=== PATIENT | male | born 1950 | race Caucasian/White ===

== ENCOUNTER 2016-07-06 13:46 | Emergency (ER) | payer OTHER ==
[~2016-07-06] VITALS: Ht 175.3 cm; Wt 100.3 kg
[~2016-07-06 13:46] MED LIST: ASPIRIN325 MG PO; CINNAMON500 MG PO; COQ1050 MG PO; CRESTOR40 MG PO; DAILY MULTIVIT1 EAC6 PO; FLOMAX0.4 MG PO; GARCINIA CAMBO1 EACH PO; LISINOPRIL10 MG PO; METOPROLOL TAR100 MG PO; MOTRIN800 MG PO; OMEGA 3 500 SO1 EACH PO; PROTONIX40 MG PO; RED YEAST RICE600 MG PO; ROSUVASTATIN CA40 MG PO; TOPROL XL50 MG PO; TRAMADOL HCL50 MG PO; TRICOR145 MG PO; TUMERSAID TABL1 EACH PO; ZETIA10 MG PO
[2016-07-06 18:35] LABS: MCH 29.8 PG (29.0-34.0); MCV 93.1 FL (86-99); MEAN PLAT.VOLUME 8.1 uM^3 (9.0-12.4); PLATELET COUNT 244 K/uL (156-360); RBC DIS.WIDTH-CV 17.7 % (11.8-14.6); RBC DIS.WIDTH-SD 55.9 % (39-53); RED BLOOD COUNT 3.76 M/uL (4.00-5.50)
[2016-07-06 18:44] LABS: CHLORIDE 108 mEq/L (99-109); POTASSIUM 4.1 mEq/L (3.7-5.4); SODIUM 141 mEq/L (136-147)
[2016-07-06 18:46] LABS: GLUCOSE 85 mg/dL (70-99); WHITE BLOOD COUNT 8.4 K/uL (4.1-10.2)
[2016-07-06 18:48] LABS: ANION GAP 9 MEQ/L (2-14)
[2016-07-06 18:50] LABS: GFR ESTIMATE (CALCULATED) > 59 mL/min/
[2016-07-06 18:51] LABS: UREA NITROGEN (BUN) 13 mg/dL (9-23)
[2016-07-06 19:16] LABS: BASOPHIL COUNT 0.1 K/uL (0-0.1); EOSINOPHIL (%) 0.1 % (0-5); HEMATOLOGY COMMENT 1 REV; IMMATURE GRANULOCYTE (%) 4.6 % (0.0-0.7); IMMATURE GRANULOCYTE COUNT 3.8 K/uL; LYMPHOCYTE COUNT 2.2 K/uL (1.0-2.8); MONOCYTE (%) 10.1 % (3-12); MONOCYTE COUNT 0.8 K/uL (0-0.8); NEUTROPHIL (%) 57.7 % (45-76); NEUTROPHIL COUNT 4.8 K/uL (1.8-6.4); PLAT.SUFFICIENCY ADEQUATE; USER ID BW1
[2016-07-06] MEDS ORDERED: CLINDAMYCIN HC300 MG PO (19:35)
[2016-07-06] MEDS ORDERED: TERBINAFINE HC250 MG PO (19:35)
[2016-07-06 19:47] VITALS: BP 138/78
== END 2016-07-06 20:23 | disposition home or self-care (01) ==
LOC: EME 13:46
PROVIDERS: Emergency Medicine
DX: B35.1 Tinea unguium (principal); C61 Malignant neoplasm of prostate; Z79.899 Other long term (current) drug therapy; E78.5 Hyperlipidemia, unspecified; I10 Essential (primary) hypertension; Z98.61 Coronary angioplasty status; Z79.82 Long term (current) use of aspirin
CPT/HCPCS: 80048; 85025; 99281; 99284

== ENCOUNTER 2016-08-07 13:34 | Emergency (ER) | payer OTHER ==
[~2016-08-07] VITALS: Ht 175.3 cm; Wt 98.3 kg
[~2016-08-07 13:34] MED LIST changes: +CLINDAMYCIN HC300 MG PO; +TERBINAFINE HC250 MG PO
[2016-08-07] MEDS ORDERED: BENADRYL25 MG PO (14:33)
[2016-08-07] MEDS ORDERED: FLEXERIL10 MG PO (14:33)
[2016-08-07 14:49] VITALS: BP 123/79
== END 2016-08-07 14:50 | disposition home or self-care (01) ==
LOC: EME 13:34
DX: M62.838 Other muscle spasm (principal); L98.9 Disorder of the skin and subcutaneous tissue, unspecified; T36.7X5A Adverse effect of antifungal antibiotics, systemically used, initial encounter; T36.8X5A Adverse effect of other systemic antibiotics, initial encounter; C61 Malignant neoplasm of prostate; I10 Essential (primary) hypertension; I25.2 Old myocardial infarction; Z98.61 Coronary angioplasty status; Z79.82 Long term (current) use of aspirin
CPT/HCPCS: 99281; 99284

== ENCOUNTER 2017-04-18 20:28 | Emergency (ER) | payer OTHER ==
[~2017-04-18] VITALS: Ht 175.3 cm; Wt 97.0 kg
[~2017-04-18 20:28] MED LIST changes: +BENADRYL25 MG PO; +FLEXERIL10 MG PO
[2017-04-18 21:10] LABS: HEMATOCRIT 39.9 % (38.0-50.0); MCHC 32.8 G/DL (30.0-36.0); MCV 91.3 FL (86-99); MEAN PLAT.VOLUME 8.9 uM^3 (9.0-12.4); PLATELET COUNT 234 K/uL (156-360); RBC DIS.WIDTH-CV 13.3 % (11.8-14.6); RBC DIS.WIDTH-SD 45.4 % (39-53); RED BLOOD COUNT 4.37 M/uL (4.00-5.50); WHITE BLOOD COUNT 8.2 K/uL (4.1-10.2)
[2017-04-18 21:20] LABS: CHLORIDE 107 mEq/L (99-109); POTASSIUM 4.4 mEq/L (3.7-5.4); SODIUM 140 mEq/L (136-147)
[2017-04-18 21:23] LABS: GLUCOSE 146 mg/dL (70-99)
[2017-04-18 21:24] LABS: ANION GAP 9 MEQ/L (2-14)
[2017-04-18 21:25] LABS: TOTAL BILIRUBIN 0.3 mg/dL (0.0-1.0)
[2017-04-18 21:26] LABS: ALKALINE PHOSPHATASE 46 IU/L (3-129); GFR ESTIMATE (CALCULATED) > 59 mL/min/
[2017-04-18 21:27] LABS: UREA NITROGEN (BUN) 17 mg/dL (9-23)
[2017-04-18 21:30] LABS: LIPASE 63 U/L (1.0-51.0)
[2017-04-18 21:32] LABS: TROP-I INTERPRETATION NEGATIVE; TROPONIN-I < 0.01 ng/mL (0.0-0.30)
[2017-04-19 00:21] VITALS: BP 118/72
== END 2017-04-19 00:22 | disposition home or self-care (01) ==
LOC: EME → EDBD 20:28 → EME 20:28
PROVIDERS: Emergency Medicine
DX: K80.70 Calculus of gallbladder and bile duct without cholecystitis without obstruction (principal); I10 Essential (primary) hypertension; E78.5 Hyperlipidemia, unspecified; I25.2 Old myocardial infarction; Z95.5 Presence of coronary angioplasty implant and graft
CPT/HCPCS: 71020; 76705; 80048; 80053; 83690; 84484; 85027; 93005; 99281; 99285

== ENCOUNTER 2017-07-25 19:01 | Emergency (ER) | payer OTHER ==
[~2017-07-25] VITALS: Ht 175.3 cm; Wt 97.5 kg
[~2017-07-25 19:01] MED LIST changes: +XTANDI40 MG PO
[2017-07-25 19:52] LABS: HEMATOCRIT 36.4 % (38.0-50.0); MCH 29.6 PG (29.0-34.0); MCV 89.7 FL (86-99); PLATELET COUNT 260 K/uL (156-360); RBC DIS.WIDTH-CV 13.5 % (11.8-14.6); RED BLOOD COUNT 4.06 M/uL (4.00-5.50); WHITE BLOOD COUNT 5.9 K/uL (4.1-10.2)
[2017-07-25 20:07] LABS: ALBUMIN 3.7 g/dL (3.2-4.8); CHLORIDE 109 mEq/L (99-109); POTASSIUM 4.2 mEq/L (3.7-5.4); SODIUM 140 mEq/L (136-147)
[2017-07-25 20:10] LABS: GLUCOSE 106 mg/dL (70-99)
[2017-07-25 20:12] LABS: TOTAL BILIRUBIN 0.4 mg/dL (0.0-1.0)
[2017-07-25 20:13] LABS: ALKALINE PHOSPHATASE 59 IU/L (3-129); GFR ESTIMATE (CALCULATED) > 59 mL/min/ (58.99-99999)
[2017-07-25 20:14] LABS: UREA NITROGEN (BUN) 12 mg/dL (9-23)
[2017-07-25 20:15] LABS: AST (GOT) 19 IU/L (2-34)
[2017-07-25 20:16] LABS: ALT (GPT) 13 IU/L (3-49)
[2017-07-25 20:17] LABS: LIPASE 49 U/L (1.0-51.0)
[2017-07-25 20:29] LABS: APPEARANCE CLEAR ((CLEAR)); BILIRUBIN NEGATIVE; BLOOD NEGATIVE; COLOR YELLOW ((YELLOW)); GLUCOSE (STRIP) NEGATIVE; KETONES NEGATIVE; LEUKOCYTES NEGATIVE; NITRITE NEGATIVE; PROTEIN (STRIP) NEGATIVE; SPECIFIC GRAVITY 1.015 (1.000-1.030); UCUL ADDED? NO; UROBILINOGEN 0.2 MG/DL (0.2-1.0)
[2017-07-25] MEDS ORDERED: NORCO 5/3251 TABLET PO (21:59)
[2017-07-25 22:45] VITALS: BP 130/67
== END 2017-07-25 22:47 | disposition home or self-care (01) ==
LOC: EME 19:01
PROVIDERS: Family Medicine
DX: R10.9 Unspecified abdominal pain (principal); C61 Malignant neoplasm of prostate; Z79.899 Other long term (current) drug therapy; I10 Essential (primary) hypertension; E78.5 Hyperlipidemia, unspecified; I25.2 Old myocardial infarction; Z95.5 Presence of coronary angioplasty implant and graft; Z87.442 Personal history of urinary calculi; Z79.82 Long term (current) use of aspirin
CPT/HCPCS: 74177; 80053; 81003; 83690; 85027; 99281; 99284; J7030

== ENCOUNTER 2017-10-06 17:32 | Inpatient (IN) | payer OTHER ==
[~2017-10-06] VITALS: Ht 175.3 cm; Wt 86.7 kg
[~2017-10-06 17:32] MED LIST changes: +MORPHINE SULFAT10 M3 PO; +NORCO 5/3251 TABLET PO
[2017-10-06] MEDS ORDERED: LOPRESSOR25 MG PO (19:33)
[2017-10-06] MEDS ORDERED: COMPAZINE10 MG PO (19:35)
[2017-10-06] MEDS ORDERED: TYLENOL EXTRA500 MG PO (19:36)
[2017-10-06] MEDS ORDERED: BRILINTA90 MG PO (19:36)
[2017-10-06] MEDS ORDERED: MS CONTIN,ORAMO30 MG PO (19:37)
[2017-10-06 20:29] VITALS: BP 115/77
[2017-10-06 20:40] VITALS: BP 115/71
[2017-10-06 20:59] LABS: IRON 22 MCG/DL (35-150); TRANSFERRIN (TIBC) 147.9 mg/dL (215-380); TRANSFERRIN SATUR. 15 % (20-55)
[2017-10-06 21:20] LABS: FOLIC ACID (FOLATE) 11.6 NG/ML (5.0-22.0)
[2017-10-06 21:40] VITALS: BP 112/72
[2017-10-06 21:55] VITALS: BP 112/72
[2017-10-06 22:03] LABS: FERRITIN 4790 NG/ML (22-322)
[2017-10-06 22:40] VITALS: BP 106/62
[2017-10-06 23:23] VITALS: BP 110/62
[2017-10-07] VITALS (9 sets, daily range): BP systolic 102–117; BP diastolic 57–71
[2017-10-07 06:36] LABS: HEMATOCRIT 22.6 % (38.0-50.0); HEMOGLOBIN 7.3 G/DL (12.5-16.6); MCH 28.3 PG (29.0-34.0); MCHC 32.3 G/DL (30.0-36.0); MCV 87.6 FL (86-99); PLATELET COUNT 177 K/uL (156-360); RBC DIS.WIDTH-CV 14.9 % (11.8-14.6); RBC DIS.WIDTH-SD 47.7 % (39-53); RED BLOOD COUNT 2.58 M/uL (4.00-5.50); WHITE BLOOD COUNT 5.2 K/uL (4.1-10.2)
[2017-10-07 08:54] LABS: CREATININE 2.3 MG/DL (0.6-1.3)
[2017-10-07 16:19] LABS: HEMOGLOBIN 7.3 G/DL (12.5-16.6); MCV 88.4 FL (86-99)
[2017-10-07 16:45] LABS: APPEARANCE CLEAR ((CLEAR)); BILIRUBIN NEGATIVE; BLOOD SMALL; COLOR YELLOW ((YELLOW)); GLUCOSE (STRIP) NEGATIVE; KETONES NEGATIVE; LEUKOCYTES NEGATIVE; NITRITE NEGATIVE; PROTEIN (STRIP) 30; SPECIFIC GRAVITY 1.012 (1.000-1.030); UROBILINOGEN 0.2 MG/DL (0.2-1.0)
[2017-10-07 17:02] LABS: BACTERIA NONE SEEN /HPF; EPITHELIAL CELLS NONE SEEN /HPF; MUCUS TRACE /LPF; RED BLOOD CELLS 0-5 /HPF (0-5); UCUL ADDED? NO; WHITE BLOOD CELLS 0-5 /HPF (0-5)
[2017-10-08 01:00] VITALS: BP 109/69
[2017-10-08 05:51] LABS: HEMATOCRIT 23.3 % (38.0-50.0); HEMOGLOBIN 7.5 G/DL (12.5-16.6); MCH 29.1 PG (29.0-34.0); MCHC 32.2 G/DL (30.0-36.0); MCV 90.3 FL (86-99); RBC DIS.WIDTH-CV 15.4 % (11.8-14.6); RBC DIS.WIDTH-SD 49.8 % (39-53); RED BLOOD COUNT 2.58 M/uL (4.00-5.50); RETIC HGB EQUIVALENT 32.7 (28-36); RETICULOCYTE COUNT 0.4 % (0.5-1.8); WHITE BLOOD COUNT 3.1 K/uL (4.1-10.2)
[2017-10-08 05:53] LABS: PLATELET COUNT 235 K/uL (156-360)
[2017-10-08 06:19] LABS: CHLORIDE 107 MEQ/L (99-109); CREATININE 1.9 MG/DL (0.6-1.3); GFR ESTIMATE (CALCULATED) 38 mL/min/ (58.99-99999); POTASSIUM 4.4 MEQ/L (3.7-5.4); SODIUM 138 MEQ/L (136-147); UREA NITROGEN (BUN) 38 mg/dL (9-23)
[2017-10-08 06:23] LABS: GLUCOSE 99 mg/dL (70-99)
[2017-10-08 06:24] LABS: ALKALINE PHOSPHATASE 82 IU/L (3-129); AST (GOT) 62 IU/L (2-34); CHLORIDE 108 MEQ/L (99-109); CREATININE 1.9 MG/DL (0.6-1.3); GFR ESTIMATE (CALCULATED) 38 mL/min/ (58.99-99999); GLUCOSE 100 mg/dL (70-99); POTASSIUM 4.4 MEQ/L (3.7-5.4); SODIUM 137 MEQ/L (136-147); TOTAL PROTEIN 6.2 G/DL (6.4-8.3); UREA NITROGEN (BUN) 38 mg/dL (9-23)
[2017-10-08 06:26] LABS: ALT (GPT) 52 IU/L (3-49); TOTAL BILIRUBIN 1.1 MG/DL (0.0-1.0)
[2017-10-08 06:34] LABS: LACTATE DEHYDROGENASE 1398 IU/L (20-246)
[2017-10-08 08:23] VITALS: BP 120/66
== END 2017-10-08 13:35 | disposition home or self-care (01) | DRG 812 ==
LOC: EME 17:32 → 5EAST 19:38 → EDOF 19:38 → ENRESERV 19:51 → 5EAST 21:14
PROVIDERS: Hospitalist; Internal Medicine; Physician Assistant
PROC: 30233N1 Transfusion of Nonautologous Red Blood Cells into Peripheral Vein, Percutaneous Approach (ICD-10-PCS; principal; 2017-10-06)
DX: D64.81 Anemia due to antineoplastic chemotherapy (principal); N17.9 Acute kidney failure, unspecified; T45.1X5A Adverse effect of antineoplastic and immunosuppressive drugs, initial encounter; D63.0 Anemia in neoplastic disease; D50.9 Iron deficiency anemia, unspecified; C61 Malignant neoplasm of prostate; I25.10 Atherosclerotic heart disease of native coronary artery without angina pectoris; Z95.5 Presence of coronary angioplasty implant and graft; N28.1 Cyst of kidney, acquired; I12.9 Hypertensive chronic kidney disease with stage 1 through stage 4 chronic kidney disease, or unspecified chronic kidney disease; N18.9 Chronic kidney disease, unspecified; N13.30 Unspecified hydronephrosis; R17 Unspecified jaundice
CPT/HCPCS: 36415; 76770; 80048; 80053; 81003; 82272; 82565; 82607; 82728; 82746; 83010 90; 83540; 83615; 84466; 84520; 85014; 85018; 85025; 85027; 85046; 86850; 86900; 86901; 86920; 99281; 99285; J1650; J1940; J2405; J7030; J7040; P9016

== ENCOUNTER 2017-10-12 00:54 | Observation (INO) | payer OTHER ==
[~2017-10-12] VITALS: Ht 175.3 cm; Wt 88.0 kg
[~2017-10-12 00:54] MED LIST changes: +BRILINTA90 MG PO; +COMPAZINE10 MG PO; +LOPRESSOR25 MG PO; +MS CONTIN,ORAMO30 MG PO; +TYLENOL EXTRA500 MG PO
[2017-10-12 01:34] LABS: BASOPHIL (%) 0.7 % (0-1); EOSINOPHIL (%) 0.3 % (0-5); HEMATOCRIT 27.2 % (38.0-50.0); IMMATURE GRANULOCYTE (%) 4.2 % (0.0-0.7); LYMPHOCYTE COUNT 0.7 K/uL (1.0-2.8); MCH 29.8 PG (29.0-34.0); MCHC 33.1 G/DL (30.0-36.0); MCV 90.1 FL (86-99); MONOCYTE (%) 19.9 % (3-12); MONOCYTE COUNT 0.6 K/uL (0-0.8); NEUTROPHIL (%) 50.9 % (45-76); NEUTROPHIL COUNT 1.5 K/uL (1.8-6.4); PLATELET COUNT 311 K/uL (156-360); RBC DIS.WIDTH-CV 15.1 % (11.8-14.6); RBC DIS.WIDTH-SD 49.5 % (39-53); WHITE BLOOD COUNT 2.9 K/uL (4.1-10.2)
[2017-10-12 01:37] LABS: RED BLOOD COUNT 3.02 M/uL (4.00-5.50)
[2017-10-12 01:46] LABS: CHLORIDE 105 mEq/L (99-109); SODIUM 136 mEq/L (136-147)
[2017-10-12 01:48] LABS: GLUCOSE 121 mg/dL (70-99); TOTAL PROTEIN 6.4 g/dL (6.4-8.3)
[2017-10-12 01:50] LABS: TOTAL BILIRUBIN 0.7 mg/dL (0.0-1.0)
[2017-10-12 01:51] LABS: ALKALINE PHOSPHATASE 74 IU/L (3-129)
[2017-10-12 01:52] LABS: GFR ESTIMATE (CALCULATED) > 59 mL/min/ (58.99-99999)
[2017-10-12 01:53] LABS: AST (GOT) 60 IU/L (2-34); UREA NITROGEN (BUN) 19 mg/dL (9-23)
[2017-10-12 01:54] LABS: ALT (GPT) 56 IU/L (3-49)
[2017-10-12 01:55] LABS: LIPASE 136 U/L (1.0-51.0)
[2017-10-12 01:57] LABS: TROP-I INTERPRETATION NEGATIVE; TROPONIN-I < 0.01 ng/mL (0.0-0.30)
[2017-10-12 01:59] LABS: APPEARANCE CLEAR ((CLEAR)); BILIRUBIN NEGATIVE; BLOOD NEGATIVE; COLOR YELLOW ((YELLOW)); GLUCOSE (STRIP) NEGATIVE; KETONES NEGATIVE; LEUKOCYTES NEGATIVE; NITRITE NEGATIVE; PROTEIN (STRIP) 30; SPECIFIC GRAVITY 1.011 (1.000-1.030); UCUL ADDED? NO; UROBILINOGEN 0.2 MG/DL (0.2-1.0)
[2017-10-12 05:53] VITALS: BP 115/74
[2017-10-12 07:00] VITALS: BP 125/71
[2017-10-12 09:22] LABS: HEMATOCRIT 27.9 % (38.0-50.0); HEMOGLOBIN 9.1 G/DL (12.5-16.6); MCH 30.2 PG (29.0-34.0); MCHC 32.6 G/DL (30.0-36.0); MCV 92.7 FL (86-99); PLATELET COUNT 319 K/uL (156-360); RBC DIS.WIDTH-CV 15.4 % (11.8-14.6); RBC DIS.WIDTH-SD 50.4 % (39-53); RED BLOOD COUNT 3.01 M/uL (4.00-5.50); WHITE BLOOD COUNT 2.9 K/uL (4.1-10.2)
[2017-10-12 09:50] LABS: CHLORIDE 106 MEQ/L (99-109); GFR ESTIMATE (CALCULATED) > 59 mL/min/ (58.99-99999); POTASSIUM 4.6 MEQ/L (3.7-5.4); SODIUM 138 MEQ/L (136-147); UREA NITROGEN (BUN) 16 mg/dL (9-23)
[2017-10-12] MEDS ORDERED: LO-DOSE ASPIRIN81 M1 PO (10:03)
[2017-10-12] MEDS ORDERED: MIRALAX255 GM PO (10:04)
[2017-10-12 10:05] LABS: TROP-I INTERPRETATION NEGATIVE; TROPONIN-I < 0.01 ng/mL (0.0-0.30)
[2017-10-12 10:26] LABS: GLUCOSE 83 mg/dL (70-99)
[2017-10-12 12:03] VITALS: BP 104/63
== END 2017-10-12 14:27 | disposition home or self-care (01) ==
LOC: EME → EDBD 00:54 → EME 00:54 → EDOF 04:39 → ENRESERV 04:47 → 4SOUTH 05:40
PROVIDERS: Emergency Medicine; Nurse Practitioner Adult Health
DX: R10.84 Generalized abdominal pain (principal); K80.70 Calculus of gallbladder and bile duct without cholecystitis without obstruction; C61 Malignant neoplasm of prostate; C79.9 Secondary malignant neoplasm of unspecified site; I25.10 Atherosclerotic heart disease of native coronary artery without angina pectoris; Z95.5 Presence of coronary angioplasty implant and graft; I10 Essential (primary) hypertension; D61.810 Antineoplastic chemotherapy induced pancytopenia; E78.5 Hyperlipidemia, unspecified; I25.2 Old myocardial infarction
CPT/HCPCS: 71046; 76705; 80048 91; 80053; 81003; 83690; 84484; 85025; 85027; 93005; 99281; 99285; G0378; J1644; J7030

== ENCOUNTER 2017-10-29 13:14 | Inpatient (IN) | payer OTHER ==
[~2017-10-29] VITALS: Ht 175.3 cm; Wt 87.2 kg
[2017-10-29] VITALS (7 sets, daily range): BP systolic 101–123; BP diastolic 57–72
[~2017-10-29 13:14] MED LIST changes: +LO-DOSE ASPIRIN81 M1 PO; +MIRALAX255 GM PO
[2017-10-29 14:08] LABS: HEMATOCRIT 17.4 % (38.0-50.0); HEMOGLOBIN 5.5 G/DL (12.5-16.6); MCH 28.8 PG (29.0-34.0); MCHC 31.6 G/DL (30.0-36.0); MCV 91.1 FL (86-99); PLATELET COUNT 292 K/uL (156-360); RBC DIS.WIDTH-CV 17.2 % (11.8-14.6); RBC DIS.WIDTH-SD 56.8 % (39-53); RED BLOOD COUNT 1.91 M/uL (4.00-5.50); WHITE BLOOD COUNT 6.4 K/uL (4.1-10.2)
[2017-10-29 14:13] LABS: CHLORIDE 98 mEq/L (99-109)
[2017-10-29 14:14] LABS: POTASSIUM 5.4 mEq/L (3.7-5.4); SODIUM 129 mEq/L (136-147)
[2017-10-29 14:15] LABS: GLUCOSE 117 mg/dL (70-99)
[2017-10-29 14:19] LABS: CREATININE 3.2 mg/dL (0.6-1.3); GFR ESTIMATE (CALCULATED) 21 mL/min/ (58.99-99999)
[2017-10-29 14:20] LABS: UREA NITROGEN (BUN) 59 mg/dL (9-23)
[2017-10-29 15:54] LABS: TOTAL BILIRUBIN 0.9 mg/dL (0.0-1.0)
[2017-10-29 16:01] LABS: TOTAL PROTEIN 7.7 g/dL (6.4-8.3)
[2017-10-29 16:06] LABS: AST (GOT) 36 IU/L (2-34)
[2017-10-29 16:07] LABS: ALBUMIN 3.4 g/dL (3.2-4.8); DIRECT BILIRUBIN 0.5 mg/dL (0.0-0.3)
[2017-10-29 16:12] LABS: ALKALINE PHOSPHATASE 68 IU/L (3-129)
[2017-10-29 16:29] LABS: ALT (GPT) 19 IU/L (3-49)
[2017-10-29 16:56] LABS: LACTATE DEHYDROGENASE 781 IU/L (20-246)
[2017-10-29 23:08] LABS: APPEARANCE CLEAR ((CLEAR)); BILIRUBIN NEGATIVE; BLOOD NEGATIVE; COLOR YELLOW ((YELLOW)); GLUCOSE (STRIP) NEGATIVE; KETONES NEGATIVE; LEUKOCYTES NEGATIVE; NITRITE NEGATIVE; PROTEIN (STRIP) NEGATIVE; SPECIFIC GRAVITY 1.014 (1.000-1.030); UROBILINOGEN 0.2 MG/DL (0.2-1.0)
[2017-10-30] VITALS (7 sets, daily range): BP systolic 105–130; BP diastolic 60–81
[2017-10-30 07:09] LABS: HEMATOCRIT 24.2 % (38.0-50.0); MCHC 31.4 G/DL (30.0-36.0); MCV 92.4 FL (86-99); PLATELET COUNT 318 K/uL (156-360); RBC DIS.WIDTH-CV 16.7 % (11.8-14.6); RBC DIS.WIDTH-SD 54.8 % (39-53); WHITE BLOOD COUNT 8.7 K/uL (4.1-10.2)
[2017-10-30 07:10] LABS: HEMOGLOBIN 7.6 G/DL (12.5-16.6); RED BLOOD COUNT 2.62 M/uL (4.00-5.50)
[2017-10-30 07:21] LABS: CHLORIDE 99 MEQ/L (99-109); CREATININE 3.5 MG/DL (0.6-1.3); GFR ESTIMATE (CALCULATED) 19 mL/min/ (58.99-99999); GLUCOSE 97 mg/dL (70-99); POTASSIUM 4.9 MEQ/L (3.7-5.4); SODIUM 130 MEQ/L (136-147); UREA NITROGEN (BUN) 57 mg/dL (9-23)
[2017-10-30] MEDS ORDERED: ESCITALOPRAM OX10 MG PO (10:57)
[2017-10-30] MEDS ORDERED: PANTOPRAZOLE SO40 MG PO (10:57)
[2017-10-30] MEDS ORDERED: COQ-10100 MG PO (10:57)
[2017-10-30] MEDS ORDERED: ROXICODONE5 MG PO (10:58)
[2017-10-30 19:45] LABS: CHLORIDE 101 MEQ/L (99-109); CREATININE 3.6 MG/DL (0.6-1.3); GFR ESTIMATE (CALCULATED) 18 mL/min/ (58.99-99999); GLUCOSE 125 mg/dL (70-99); SODIUM 129 MEQ/L (136-147); UREA NITROGEN (BUN) 60 mg/dL (9-23)
[2017-10-31] VITALS (10 sets, daily range): BP systolic 116–152; BP diastolic 68–83
[2017-10-31 06:25] LABS: BASOPHIL (%) 0.3 % (0-1); EOSINOPHIL (%) 2.5 % (0-5); EOSINOPHIL COUNT 0.2 K/uL (0-0.3); HEMATOCRIT 22.4 % (38.0-50.0); HEMOGLOBIN 7.1 G/DL (12.5-16.6); IMMATURE GRANULOCYTE (%) 0.4 % (0.0-0.7); LYMPHOCYTE (%) 8.6 % (15-42); LYMPHOCYTE COUNT 0.6 K/uL (1.0-2.8); MCH 29.1 PG (29.0-34.0); MCHC 31.7 G/DL (30.0-36.0); MCV 91.8 FL (86-99); MONOCYTE (%) 15.3 % (3-12); MONOCYTE COUNT 1.1 K/uL (0-0.8); NEUTROPHIL (%) 72.9 % (45-76); NEUTROPHIL COUNT 5.2 K/uL (1.8-6.4); PLATELET COUNT 309 K/uL (156-360); RBC DIS.WIDTH-CV 16.8 % (11.8-14.6); RBC DIS.WIDTH-SD 56.6 % (39-53); RED BLOOD COUNT 2.44 M/uL (4.00-5.50); WHITE BLOOD COUNT 7.1 K/uL (4.1-10.2)
[2017-10-31 06:53] LABS: CHLORIDE 101 MEQ/L (99-109); CREATININE 3.8 MG/DL (0.6-1.3); GFR ESTIMATE (CALCULATED) 17 mL/min/ (58.99-99999); SODIUM 130 MEQ/L (136-147); UREA NITROGEN (BUN) 57 mg/dL (9-23)
[2017-10-31 07:01] LABS: GLUCOSE 89 mg/dL (70-99)
[2017-10-31 17:17] LABS: BASOPHIL (%) 0.4 % (0-1); EOSINOPHIL COUNT 0.1 K/uL (0-0.3); HEMATOCRIT 26.9 % (38.0-50.0); HEMOGLOBIN 8.7 G/DL (12.5-16.6); IMMATURE GRANULOCYTE (%) 0.3 % (0.0-0.7); LYMPHOCYTE (%) 6.5 % (15-42); LYMPHOCYTE COUNT 0.4 K/uL (1.0-2.8); MCHC 32.3 G/DL (30.0-36.0); MCV 89.7 FL (86-99); MONOCYTE (%) 10.6 % (3-12); MONOCYTE COUNT 0.7 K/uL (0-0.8); NEUTROPHIL (%) 81.2 % (45-76); NEUTROPHIL COUNT 5.5 K/uL (1.8-6.4); PLATELET COUNT 301 K/uL (156-360); RBC DIS.WIDTH-CV 16.5 % (11.8-14.6); RBC DIS.WIDTH-SD 53.9 % (39-53); WHITE BLOOD COUNT 6.8 K/uL (4.1-10.2)
[2017-11-01 07:25] VITALS: BP 158/76
[2017-11-01 15:45] VITALS: BP 133/80
[2017-11-02] VITALS (10 sets, daily range): BP systolic 102–122; BP diastolic 55–88
[2017-11-02 06:21] LABS: BASOPHIL (%) 0.4 % (0-1); EOSINOPHIL (%) 1.8 % (0-5); EOSINOPHIL COUNT 0.1 K/uL (0-0.3); HEMATOCRIT 26.1 % (38.0-50.0); HEMOGLOBIN 8.3 G/DL (12.5-16.6); IMMATURE GRANULOCYTE (%) 0.3 % (0.0-0.7); LYMPHOCYTE (%) 12.7 % (15-42); MCH 28.9 PG (29.0-34.0); MCHC 31.8 G/DL (30.0-36.0); MCV 90.9 FL (86-99); MONOCYTE (%) 15.8 % (3-12); MONOCYTE COUNT 1.2 K/uL (0-0.8); NEUTROPHIL COUNT 5.2 K/uL (1.8-6.4); PLATELET COUNT 356 K/uL (156-360); RBC DIS.WIDTH-CV 16.7 % (11.8-14.6); RED BLOOD COUNT 2.87 M/uL (4.00-5.50); WHITE BLOOD COUNT 7.6 K/uL (4.1-10.2)
[2017-11-02 08:20] LABS: CHLORIDE 99 MEQ/L (99-109); CREATININE 3.8 MG/DL (0.6-1.3); GFR ESTIMATE (CALCULATED) 17 mL/min/ (58.99-99999); GLUCOSE 97 mg/dL (70-99); POTASSIUM 5.2 MEQ/L (3.7-5.4); SODIUM 128 MEQ/L (136-147); UREA NITROGEN (BUN) 59 mg/dL (9-23)
[2017-11-03 05:58] LABS: BASOPHIL (%) 0.4 % (0-1); EOSINOPHIL (%) 2.2 % (0-5); EOSINOPHIL COUNT 0.2 K/uL (0-0.3); HEMATOCRIT 25.4 % (38.0-50.0); HEMOGLOBIN 8.1 G/DL (12.5-16.6); IMMATURE GRANULOCYTE (%) 0.3 % (0.0-0.7); LYMPHOCYTE (%) 9.5 % (15-42); LYMPHOCYTE COUNT 0.7 K/uL (1.0-2.8); MCH 28.9 PG (29.0-34.0); MCHC 31.9 G/DL (30.0-36.0); MCV 90.7 FL (86-99); MONOCYTE (%) 16.1 % (3-12); MONOCYTE COUNT 1.1 K/uL (0-0.8); NEUTROPHIL (%) 71.5 % (45-76); PLATELET COUNT 305 K/uL (156-360); RBC DIS.WIDTH-CV 16.2 % (11.8-14.6); RBC DIS.WIDTH-SD 53.9 % (39-53); WHITE BLOOD COUNT 6.9 K/uL (4.1-10.2)
[2017-11-03 06:19] LABS: CHLORIDE 100 MEQ/L (99-109); GLUCOSE 97 mg/dL (70-99); SODIUM 132 MEQ/L (136-147); UREA NITROGEN (BUN) 47 mg/dL (9-23)
[2017-11-03 06:20] LABS: CREATININE 3.1 MG/DL (0.6-1.3); GFR ESTIMATE (CALCULATED) 21 mL/min/ (58.99-99999)
[2017-11-03 07:00] VITALS: BP 101/60
[2017-11-03 15:00] VITALS: BP 130/75
[2017-11-03 23:25] VITALS: BP 119/73
[2017-11-04 06:33] LABS: BASOPHIL (%) 0.7 % (0-1); BASOPHIL COUNT 0.1 K/uL (0-0.1); EOSINOPHIL (%) 2.8 % (0-5); EOSINOPHIL COUNT 0.2 K/uL (0-0.3); HEMATOCRIT 29.7 % (38.0-50.0); HEMOGLOBIN 9.4 G/DL (12.5-16.6); IMMATURE GRANULOCYTE (%) 0.4 % (0.0-0.7); LYMPHOCYTE (%) 13.2 % (15-42); LYMPHOCYTE COUNT 1.1 K/uL (1.0-2.8); MCH 29.1 PG (29.0-34.0); MCHC 31.6 G/DL (30.0-36.0); MONOCYTE (%) 12.6 % (3-12); MONOCYTE COUNT 1.1 K/uL (0-0.8); NEUTROPHIL (%) 70.3 % (45-76); NEUTROPHIL COUNT 5.9 K/uL (1.8-6.4); PLATELET COUNT 355 K/uL (156-360); RBC DIS.WIDTH-CV 16.2 % (11.8-14.6); RBC DIS.WIDTH-SD 54.4 % (39-53); RED BLOOD COUNT 3.23 M/uL (4.00-5.50); WHITE BLOOD COUNT 8.5 K/uL (4.1-10.2)
[2017-11-04 06:45] VITALS: BP 106/65
[2017-11-04 07:44] LABS: CHLORIDE 103 MEQ/L (99-109); GFR ESTIMATE (CALCULATED) 30 mL/min/ (58.99-99999); GLUCOSE 109 mg/dL (70-99); POTASSIUM 4.7 MEQ/L (3.7-5.4); SODIUM 137 MEQ/L (136-147); UREA NITROGEN (BUN) 39 mg/dL (9-23)
[2017-11-04 07:47] LABS: CREATININE 2.3 MG/DL (0.6-1.3)
[2017-11-04 15:00] VITALS: BP 132/79
[2017-11-04 20:45] VITALS: BP 128/77
[2017-11-04 23:07] VITALS: BP 143/77
[2017-11-05 06:06] LABS: BASOPHIL (%) 0.7 % (0-1); BASOPHIL COUNT 0.1 K/uL (0-0.1); EOSINOPHIL (%) 1.6 % (0-5); EOSINOPHIL COUNT 0.1 K/uL (0-0.3); HEMATOCRIT 27.9 % (38.0-50.0); HEMOGLOBIN 8.8 G/DL (12.5-16.6); IMMATURE GRANULOCYTE (%) 0.5 % (0.0-0.7); LYMPHOCYTE (%) 9.2 % (15-42); LYMPHOCYTE COUNT 0.8 K/uL (1.0-2.8); MCH 28.9 PG (29.0-34.0); MCHC 31.5 G/DL (30.0-36.0); MCV 91.8 FL (86-99); MONOCYTE (%) 12.8 % (3-12); MONOCYTE COUNT 1.1 K/uL (0-0.8); NEUTROPHIL (%) 75.2 % (45-76); NEUTROPHIL COUNT 6.5 K/uL (1.8-6.4); PLATELET COUNT 356 K/uL (156-360); RBC DIS.WIDTH-SD 53.8 % (39-53); RED BLOOD COUNT 3.04 M/uL (4.00-5.50); WHITE BLOOD COUNT 8.7 K/uL (4.1-10.2)
[2017-11-05 06:35] LABS: CHLORIDE 102 MEQ/L (99-109); GFR ESTIMATE (CALCULATED) 36 mL/min/ (58.99-99999); GLUCOSE 107 mg/dL (70-99); POTASSIUM 5.3 MEQ/L (3.7-5.4); SODIUM 135 MEQ/L (136-147); UREA NITROGEN (BUN) 31 mg/dL (9-23)
[2017-11-05 06:48] VITALS: BP 120/73
[2017-11-05] MEDS ORDERED: SALINE FLUSH 1010 ML IV (11:56)
[2017-11-05] MEDS ORDERED: BISAC-EVAC10 MG PR (11:56)
[2017-11-05 14:50] VITALS: BP 107/66
== END 2017-11-05 19:17 | disposition home health service (06) | DRG 660 ==
LOC: EME 13:14 → EDOF 15:17 → 5EAST 15:17 → ENRESERV 15:37 → 5EAST 19:21 → ENPENDDIS 11-05 → 5EAST 11-05 19:17
PROVIDERS: Family Medicine; Hospitalist; Student in an Organized Health Care Education/Training Program
PROC: 30233N1 Transfusion of Nonautologous Red Blood Cells into Peripheral Vein, Percutaneous Approach (ICD-10-PCS; principal; 2017-10-29)
PROC: 0T743DZ Dilation of Left Kidney Pelvis with Intraluminal Device, Percutaneous Approach (ICD-10-PCS; 2017-11-01)
PROC: 0T733DZ Dilation of Right Kidney Pelvis with Intraluminal Device, Percutaneous Approach (ICD-10-PCS; 2017-11-04)
DX: N17.9 Acute kidney failure, unspecified (principal); N13.1 Hydronephrosis with ureteral stricture, not elsewhere classified; I95.9 Hypotension, unspecified; C61 Malignant neoplasm of prostate; C79.51 Secondary malignant neoplasm of bone; C78.6 Secondary malignant neoplasm of retroperitoneum and peritoneum; E87.1 Hypo-osmolality and hyponatremia; E86.0 Dehydration; I25.10 Atherosclerotic heart disease of native coronary artery without angina pectoris; K21.9 Gastro-esophageal reflux disease without esophagitis; E78.5 Hyperlipidemia, unspecified; K59.00 Constipation, unspecified; Z95.5 Presence of coronary angioplasty implant and graft; Z92.21 Personal history of antineoplastic chemotherapy; Z80.42 Family history of malignant neoplasm of prostate; D64.9 Anemia, unspecified; I10 Essential (primary) hypertension; I25.2 Old myocardial infarction; Z87.442 Personal history of urinary calculi
CPT/HCPCS: 36415; 50433; 74176; 76770; 80048; 80048 91; 80053; 80076; 81003; 83615; 85025; 85025 91; 85027; 86850; 86900; 86901; 86920; 93005; 99281; 99285; C1729; J2405; J2765; J3010; J7030; J7040; J7120; P9016; P9040

== ENCOUNTER → 2017-11-15 | Outpatient (CLI) | payer OTHER ==
[2017-11-15] VITALS (8 sets, daily range): BP systolic 11–134; BP diastolic 59–77
[~2017-11-15] VITALS: Ht 175.3 cm; Wt 93.5 kg
[~2017-11-15] MED LIST changes: +BISAC-EVAC10 MG PR; +CENTRUM SILVER1 EAC3 PO; +COQ-10100 MG PO; +ESCITALOPRAM OX10 MG PO; +PANTOPRAZOLE SO40 MG PO; +ROXICODONE5 MG PO; +SALINE FLUSH 1010 ML IV
== END | disposition home or self-care (01) ==
LOC: IVINF 13:00
DX: D64.9 Anemia, unspecified (principal); C61 Malignant neoplasm of prostate
CPT/HCPCS: 36430; 86999

== ENCOUNTER 2017-11-29 19:17 | Inpatient (IN) | payer OTHER ==
[~2017-11-29] VITALS: Ht 177.8 cm; Wt 93.2 kg
[~2017-11-29 19:17] MED LIST changes: +PREDNISONE5 MG PO; +PROCHLORPERAZIN10 MG PO; +ZYTIGA250 MG PO
[2017-11-29 19:55] LABS: CHLORIDE 100 mEq/L (99-109); POTASSIUM 4.1 mEq/L (3.7-5.4); SODIUM 130 mEq/L (136-147)
[2017-11-29 19:58] LABS: GLUCOSE 57 mg/dL (70-99)
[2017-11-29 20:00] LABS: GFR ESTIMATE (CALCULATED) 21 mL/min/ (58.99-99999)
[2017-11-29 20:09] LABS: CREATININE 3.1 mg/dL (0.6-1.3); UREA NITROGEN (BUN) 45 mg/dL (9-23)
[2017-11-29 20:26] LABS: APPEARANCE CLOUDY ((CLEAR)); BILIRUBIN NEGATIVE; BLOOD MODERATE; COLOR AMBER ((YELLOW)); GLUCOSE (STRIP) NEGATIVE; KETONES NEGATIVE; LEUKOCYTES NEGATIVE; NITRITE NEGATIVE; PROTEIN (STRIP) 100; SPECIFIC GRAVITY 1.013 (1.000-1.030); UROBILINOGEN 0.2 MG/DL (0.2-1.0)
[2017-11-29 20:27] LABS: APPEARANCE SL.HAZY ((CLEAR)); BILIRUBIN NEGATIVE; BLOOD MODERATE; COLOR YELLOW ((YELLOW)); GLUCOSE (STRIP) NEGATIVE; KETONES 5; LEUKOCYTES SMALL; NITRITE POSITIVE; PROTEIN (STRIP) 100; SPECIFIC GRAVITY 1.013 (1.000-1.030)
[2017-11-29 20:45] LABS: BACTERIA 2+ /HPF; EPITHELIAL CELLS RARE /HPF; MUCUS NONE SEEN /LPF; UCUL ADDED? YES
[2017-11-29 20:46] LABS: AMORPHOUS URATES CRYSTALS 2+; FINE GRANULAR CASTS RARE /LPF
[2017-11-29 20:49] LABS: BACTERIA RARE /HPF; EPITHELIAL CELLS NONE SEEN /HPF; MUCUS TRACE /LPF; RED BLOOD CELLS 15-20 /HPF (0-5); UCUL ADDED? YES; WHITE BLOOD CELLS 20-30 /HPF (0-5)
[2017-11-29 21:03] LABS: BASOPHIL (%) 0.1 % (0-1); EOSINOPHIL (%) 0.1 % (0-5); HEMATOCRIT 29.5 % (38.0-50.0); IMMATURE GRANULOCYTE (%) 0.4 % (0.0-0.7); LYMPHOCYTE (%) 3.3 % (15-42); LYMPHOCYTE COUNT 0.3 K/uL (1.0-2.8); MCHC 32.9 G/DL (30.0-36.0); MCV 91.3 FL (86-99); MONOCYTE (%) 4.8 % (3-12); MONOCYTE COUNT 0.5 K/uL (0-0.8); NEUTROPHIL (%) 91.3 % (45-76); NEUTROPHIL COUNT 8.8 K/uL (1.8-6.4); PLAT.SUFFICIENCY ADEQUATE; RBC DIS.WIDTH-SD 53.6 % (39-53); WHITE BLOOD COUNT 9.6 K/uL (4.1-10.2)
[2017-11-29 21:07] LABS: HEMOGLOBIN 9.7 G/DL (12.5-16.6); PLATELET COUNT 206 K/uL (156-360); RED BLOOD COUNT 3.23 M/uL (4.00-5.50)
[2017-11-29 21:36] LABS: CREATINE KINASE 271 IU/L (1-294)
[2017-11-29] MEDS ORDERED: BISAC-EVAC10 MG PR (22:00)
[2017-11-29] MEDS ORDERED: SALINE FLUSH 1010 ML IV (22:02)
[2017-11-29] MEDS ORDERED: METOPROLOL TART25 MG PO (22:02)
[2017-11-29] MEDS ORDERED: MORPHINE SULFAT30 M2 PO (22:03)
[2017-11-29 22:17] LABS: ALBUMIN 2.9 G/DL (3.2-4.8); DIRECT BILIRUBIN 0.5 mg/dL (0.0-0.3); TOTAL BILIRUBIN 1.2 MG/DL (0.0-1.0)
[2017-11-29 22:23] LABS: LIPASE 217 U/L (1.0-51.0)
[2017-11-29 22:44] LABS: ALKALINE PHOSPHATASE 117 IU/L (3-129); ALT (GPT) 23 IU/L (3-49); AST (GOT) 87 IU/L (2-34)
[2017-11-29 23:50] VITALS: BP 112/68
[2017-11-30 05:53] LABS: HEMOGLOBIN 8.7 G/DL (12.5-16.6); MCH 29.5 PG (29.0-34.0); MCHC 32.2 G/DL (30.0-36.0); MCV 91.5 FL (86-99); PLATELET COUNT 209 K/uL (156-360); RBC DIS.WIDTH-CV 16.3 % (11.8-14.6); RBC DIS.WIDTH-SD 54.3 % (39-53); RED BLOOD COUNT 2.95 M/uL (4.00-5.50); WHITE BLOOD COUNT 8.5 K/uL (4.1-10.2)
[2017-11-30 06:23] LABS: ALBUMIN 2.5 G/DL (3.2-4.8); ALKALINE PHOSPHATASE 95 IU/L (3-129); ALT (GPT) 29 IU/L (3-49); AST (GOT) 118 IU/L (2-34); CHLORIDE 101 MEQ/L (99-109); CREATININE 3.3 MG/DL (0.6-1.3); GFR ESTIMATE (CALCULATED) 20 mL/min/ (58.99-99999); POTASSIUM 4.5 MEQ/L (3.7-5.4); SODIUM 130 MEQ/L (136-147); TOTAL PROTEIN 7.1 G/DL (6.4-8.3); UREA NITROGEN (BUN) 49 mg/dL (9-23)
[2017-11-30 06:24] LABS: GLUCOSE 86 mg/dL (70-99)
[2017-11-30 08:00] VITALS: BP 113/70
[2017-11-30 19:19] VITALS: BP 116/69
[2017-11-30 20:00] LABS: HEMATOCRIT 27.4 % (38.0-50.0); MCV 91.6 FL (86-99)
[2017-11-30 22:49] VITALS: BP 116/69
[2017-12-01 03:12] LABS: COMMENTS - BLOOD GASES A+C+; DEVICE NC; O2 FLOW 6 L/MIN; SITE LR
[2017-12-01 03:13] LABS: PCO2 22 mm Hg (35-45); PO2 100 mm Hg (80-100)
[2017-12-01 03:14] LABS: BASE EXCESS -13.9 mEq/L (-3 to +3); BICARBONATE 10.8 mEq/L (22-26); CARBOXY HGB 1.7 % (0-5); METHEMOGLOBIN 0.9 % (0-1.5)
[2017-12-01 03:40] LABS: HEMATOCRIT 30.6 % (38.0-50.0); HEMOGLOBIN 9.9 G/DL (12.5-16.6); MCH 29.8 PG (29.0-34.0); MCHC 32.4 G/DL (30.0-36.0); MCV 92.2 FL (86-99); PLATELET COUNT 250 K/uL (156-360); RBC DIS.WIDTH-CV 16.3 % (11.8-14.6); RBC DIS.WIDTH-SD 54.6 % (39-53); RED BLOOD COUNT 3.32 M/uL (4.00-5.50); WHITE BLOOD COUNT 10.4 K/uL (4.1-10.2)
[2017-12-01 03:52] LABS: INTER. NORMALIZED RATIO 1.2
[2017-12-01 03:53] LABS: ALBUMIN 2.9 g/dL (3.2-4.8)
[2017-12-01 03:56] LABS: TOTAL PROTEIN 8.6 g/dL (6.4-8.3)
[2017-12-01 03:59] LABS: ALKALINE PHOSPHATASE 157 IU/L (3-129); CHLORIDE 102 mEq/L (99-109); POTASSIUM 4.5 mEq/L (3.7-5.4); SODIUM 131 mEq/L (136-147)
[2017-12-01 04:02] LABS: ALT (GPT) 58 IU/L (3-49); AST (GOT) 238 IU/L (2-34); DIRECT BILIRUBIN 0.9 mg/dL (0.0-0.3)
[2017-12-01 04:04] LABS: GLUCOSE 53 mg/dL (70-99)
[2017-12-01 04:06] LABS: UREA NITROGEN (BUN) 58 mg/dL (9-23)
[2017-12-01 04:10] VITALS: BP 115/65
[2017-12-01 04:18] LABS: CREATININE 3.8 mg/dL (0.6-1.3); GFR ESTIMATE (CALCULATED) 17 mL/min/ (58.99-99999)
[2017-12-01 07:25] VITALS: BP 112/71
[2017-12-01 11:50] VITALS: BP 120/76
[2017-12-01 15:15] VITALS: BP 115/75
[2017-12-01 16:21] LABS: CHLORIDE 101 MEQ/L (99-109); CREATININE 3.7 MG/DL (0.6-1.3); GFR ESTIMATE (CALCULATED) 18 mL/min/ (58.99-99999); POTASSIUM 4.1 MEQ/L (3.7-5.4); SODIUM 130 MEQ/L (136-147); UREA NITROGEN (BUN) 56 mg/dL (9-23)
[2017-12-01 16:23] LABS: GLUCOSE 107 mg/dL (70-99)
[2017-12-01 20:33] VITALS: BP 119/71
[2017-12-02 00:12] VITALS: BP 146/99
[2017-12-02 04:02] VITALS: BP 108/74
[2017-12-02 05:45] LABS: BASOPHIL (%) 0.2 % (0-1); EOSINOPHIL (%) 0.1 % (0-5); HEMATOCRIT 27.2 % (38.0-50.0); HEMOGLOBIN 8.8 G/DL (12.5-16.6); IMMATURE GRANULOCYTE (%) 0.8 % (0.0-0.7); LYMPHOCYTE (%) 3.7 % (15-42); LYMPHOCYTE COUNT 0.5 K/uL (1.0-2.8); MCHC 32.4 G/DL (30.0-36.0); MCV 89.8 FL (86-99); MONOCYTE (%) 6.1 % (3-12); MONOCYTE COUNT 0.8 K/uL (0-0.8); NEUTROPHIL (%) 89.1 % (45-76); PLATELET COUNT 178 K/uL (156-360); RBC DIS.WIDTH-CV 16.2 % (11.8-14.6); RBC DIS.WIDTH-SD 53.5 % (39-53); RED BLOOD COUNT 3.03 M/uL (4.00-5.50); WHITE BLOOD COUNT 12.4 K/uL (4.1-10.2)
[2017-12-02 06:23] LABS: ALBUMIN 3.1 G/DL (3.2-4.8); CHLORIDE 99 MEQ/L (99-109); GFR ESTIMATE (CALCULATED) 16 mL/min/ (58.99-99999); GLUCOSE 82 mg/dL (70-99); PHOSPHORUS 4.1 mg/dL (2.5-4.9); POTASSIUM 4.1 MEQ/L (3.7-5.4); SODIUM 129 MEQ/L (136-147); TOTAL PROTEIN 7.8 G/DL (6.4-8.3); UREA NITROGEN (BUN) 56 mg/dL (9-23); URIC ACID 9.7 mg/dL (3.1-9.2)
[2017-12-02 06:28] LABS: ALKALINE PHOSPHATASE 148 IU/L (3-129); ALT (GPT) 59 IU/L (3-49); AST (GOT) 269 IU/L (2-34); TOTAL BILIRUBIN 1.3 MG/DL (0.0-1.0)
[2017-12-02 08:19] VITALS: BP 135/77
[2017-12-02 12:09] VITALS: BP 121/78
[2017-12-02 20:18] VITALS: BP 136/73
[2017-12-02 22:09] VITALS: BP 126/74
[2017-12-03 03:44] VITALS: BP 130/78
[2017-12-03 05:21] LABS: BASOPHIL (%) 0.2 % (0-1); EOSINOPHIL (%) 0.2 % (0-5); HEMATOCRIT 26.6 % (38.0-50.0); HEMOGLOBIN 8.7 G/DL (12.5-16.6); IMMATURE GRANULOCYTE (%) 1.2 % (0.0-0.7); LYMPHOCYTE (%) 3.2 % (15-42); LYMPHOCYTE COUNT 0.4 K/uL (1.0-2.8); MCH 28.8 PG (29.0-34.0); MCHC 32.7 G/DL (30.0-36.0); MCV 88.1 FL (86-99); MONOCYTE (%) 5.4 % (3-12); MONOCYTE COUNT 0.6 K/uL (0-0.8); NEUTROPHIL (%) 89.8 % (45-76); NEUTROPHIL COUNT 10.4 K/uL (1.8-6.4); PLATELET COUNT 171 K/uL (156-360); RBC DIS.WIDTH-CV 16.3 % (11.8-14.6); RBC DIS.WIDTH-SD 53.1 % (39-53); RED BLOOD COUNT 3.02 M/uL (4.00-5.50); WHITE BLOOD COUNT 11.6 K/uL (4.1-10.2)
[2017-12-03 06:11] LABS: ALBUMIN 2.7 G/DL (3.2-4.8); ALT (GPT) 70 IU/L (3-49); AST (GOT) 342 IU/L (2-34); CHLORIDE 96 MEQ/L (99-109); CREATININE 4.2 MG/DL (0.6-1.3); GFR ESTIMATE (CALCULATED) 15 mL/min/ (58.99-99999); GLUCOSE 69 mg/dL (70-99); POTASSIUM 3.9 MEQ/L (3.7-5.4); SODIUM 126 MEQ/L (136-147); TOTAL BILIRUBIN 1.5 MG/DL (0.0-1.0); TOTAL PROTEIN 7.2 G/DL (6.4-8.3); UREA NITROGEN (BUN) 58 mg/dL (9-23)
[2017-12-03 06:20] LABS: ALKALINE PHOSPHATASE 190 IU/L (3-129)
[2017-12-03 07:18] VITALS: BP 134/79
[2017-12-03 12:28] VITALS: BP 147/88
[2017-12-03 13:55] LABS: ANTI-HEPATITIS B CORE (TOTAL) Nonreactive
[2017-12-03 13:56] LABS: HEPATITIS B SURFACE ANTIGEN Nonreactive; HEPATITIS C ANTIBODY Nonreactive
[2017-12-03 13:57] LABS: HEPATITIS B SURFACE ANTIBODY Nonreactive
[2017-12-03 15:21] VITALS: BP 132/87
[2017-12-03 19:00] VITALS: BP 141/88
[2017-12-03 23:00] VITALS: BP 133/88
[2017-12-04 03:30] VITALS: BP 137/82
[2017-12-04 06:18] LABS: BASOPHIL (%) 0.1 % (0-1); EOSINOPHIL (%) 0.1 % (0-5); HEMATOCRIT 26.6 % (38.0-50.0); HEMOGLOBIN 8.8 G/DL (12.5-16.6); IMMATURE GRANULOCYTE (%) 0.8 % (0.0-0.7); LYMPHOCYTE (%) 3.3 % (15-42); LYMPHOCYTE COUNT 0.4 K/uL (1.0-2.8); MCH 28.7 PG (29.0-34.0); MCHC 33.1 G/DL (30.0-36.0); MCV 86.6 FL (86-99); MONOCYTE COUNT 0.8 K/uL (0-0.8); NEUTROPHIL (%) 89.7 % (45-76); NEUTROPHIL COUNT 11.8 K/uL (1.8-6.4); PLATELET COUNT 157 K/uL (156-360); RBC DIS.WIDTH-CV 16.4 % (11.8-14.6); RBC DIS.WIDTH-SD 51.8 % (39-53); RED BLOOD COUNT 3.07 M/uL (4.00-5.50); WHITE BLOOD COUNT 13.1 K/uL (4.1-10.2)
[2017-12-04 06:35] LABS: CHLORIDE 97 MEQ/L (99-109); CREATININE 3.6 MG/DL (0.6-1.3); GFR ESTIMATE (CALCULATED) 18 mL/min/ (58.99-99999); GLUCOSE 77 mg/dL (70-99); PHOSPHORUS 3.9 mg/dL (2.5-4.9); POTASSIUM 4.2 MEQ/L (3.7-5.4); SODIUM 129 MEQ/L (136-147); UREA NITROGEN (BUN) 44 mg/dL (9-23); VANCOMYCIN, TROUGH 18.5 MCG/ML (10-20)
[2017-12-04 06:48] LABS: URIC ACID 9.6 mg/dL (3.1-9.2)
[2017-12-04 09:09] VITALS: BP 127/86
[2017-12-04 09:17] LABS: ALBUMIN 2.5 G/DL (3.2-4.8); ALT (GPT) 90 IU/L (3-49); AST (GOT) 479 IU/L (2-34); TOTAL BILIRUBIN 1.7 MG/DL (0.0-1.0)
[2017-12-04 09:18] LABS: ALKALINE PHOSPHATASE 240 IU/L (3-129)
[2017-12-04 11:53] VITALS: BP 144/90
[2017-12-04] MEDS ORDERED: MORPHINE CON20 MG/M1 SL (14:52)
[2017-12-04] MEDS ORDERED: ATIVAN INTE2 MG/1 ML PO (14:52)
[2017-12-04] MEDS ORDERED: HYOSCYAMINE0.125 M1 SL (14:52)
[2017-12-04] MEDS ORDERED: DOXYCYCLINE HY100 MG PO (14:52)
[2017-12-04] MEDS ORDERED: CIPRO500 MG PO (14:54)
[2017-12-04 15:28] VITALS: BP 127/88
[2017-12-04 16:01] VITALS: BP 134/89
== END 2017-12-04 17:26 | disposition hospice, home (50) | DRG 698 ==
LOC: EME → EDBD 19:17 → 4EAST 21:58 → 5EAST 21:58 → EDOF 21:58 → ENRESERV 22:04 → 5EAST 23:44 → ENRESERV 12-01 03:05 → 5EAST 12-01 03:12 → 4EAST 12-01 03:40
PROVIDERS: Hospitalist; Internal Medicine; Internal Medicine Nephrology; Nurse Practitioner Family; Physician Assistant
PROC: 02HV33Z Insertion of Infusion Device into Superior Vena Cava, Percutaneous Approach (ICD-10-PCS; principal; 2017-12-03)
PROC: 5A1D70Z Performance of Urinary Filtration, Intermittent, Less than 6 Hours Per Day (ICD-10-PCS; 2017-12-03)
DX: T83.512A Infection and inflammatory reaction due to nephrostomy catheter, initial encounter (principal); N99.521 Infection of incontinent external stoma of urinary tract; A41.02 Sepsis due to Methicillin resistant Staphylococcus aureus; N15.1 Renal and perinephric abscess; N39.0 Urinary tract infection, site not specified; N17.0 Acute kidney failure with tubular necrosis; R65.20 Severe sepsis without septic shock; C61 Malignant neoplasm of prostate; C79.89 Secondary malignant neoplasm of other specified sites; C77.9 Secondary and unspecified malignant neoplasm of lymph node, unspecified; C79.51 Secondary malignant neoplasm of bone; N99.840 Postprocedural hematoma of a genitourinary system organ or structure following a genitourinary system procedure; Y83.3 Surgical operation with formation of external stoma as the cause of abnormal reaction of the patient, or of later complication, without mention of misadventure at the time of the procedure; Z51.5 Encounter for palliative care; E87.1 Hypo-osmolality and hyponatremia; E87.2 Acidosis; R09.02 Hypoxemia; I95.9 Hypotension, unspecified; I12.9 Hypertensive chronic kidney disease with stage 1 through stage 4 chronic kidney disease, or unspecified chronic kidney disease; N18.3 Chronic kidney disease, stage 3 (moderate); N28.1 Cyst of kidney, acquired; R60.0 Localized edema; D64.9 Anemia, unspecified; E16.2 Hypoglycemia, unspecified; R94.5 Abnormal results of liver function studies; I25.10 Atherosclerotic heart disease of native coronary artery without angina pectoris; K21.9 Gastro-esophageal reflux disease without esophagitis; E78.5 Hyperlipidemia, unspecified; I25.2 Old myocardial infarction; F32.9 Major depressive disorder, single episode, unspecified; F41.9 Anxiety disorder, unspecified; Z95.5 Presence of coronary angioplasty implant and graft
CPT/HCPCS: 36415; 36430; 36600; 70450; 71045; 71046; 74176; 76770; 80048; 80048 91; 80053; 80076; 80202; 81003; 82248; 82550; 82570; 82948; 83036; 83605; 83690; 83735; 84100; 84156; 84300; 84550; 85014; 85018; 85025; 85027; 85610; 85730; 86704; 86706; 86803; 86850; 86900; 86901; 86920; 86999; 87040; 87076; 87077; 87086; 87147; 87185; 87186; 87340; 87801; 89190; 93005; 93970; 94799; 99281; 99285; C1788; C9113; J0692; J1644; J1940; J1956; J2270; J2405; J3370; J7030; J7070; J7120; J7512; P9047; Q0164